=== PATIENT | male | born 1940 | race Caucasian/White ===

== ENCOUNTER 2020-04-19 22:43 | Emergency (ER) | payer MEDICARE, OTHER ==
--- NOTE | 2020-04-20 02:08 | CON ---
DATE OF CONSULTATION: 04/19/2020 SUBJECTIVE: Mr. Munson is 79-year-old gentleman, as a transfer from [place] to our ED due to a fall. He states he was at his grandson's birthday alliance party when he came out of the porch and stepped on a plastic pumpkin. He then tripped and fell hitting his head on a glass door. Luckily, the sliding glass door did not shatter break. He currently complains of neck pain. Denies loss of consciousness, weakness, loss of bowel or bladder dysfunction. A C-spine CT was done at [place] indicating an incomplete fracture of the base of the dens. There are cystic changes in the region that suggested chronic in nature versus acute in nature. There is no displacement noted on the CT image. He has free active range of motion in all extremities. No focal motor weakness. No reflex asymmetry. He denies bladder or bowel dysfunction. REVIEW OF SYSTEMS: CONSTITUTIONAL: Denies fever or chills. ENT: Denies change in vision or hearing. CARDIAC: Denies chest pain, shortness of breath, diaphoresis. PULMONARY: Denies shortness of breath, cough, hemoptysis. GASTROINTESTINAL: Denies abdominal pain, nausea, vomiting, diarrhea, change in stool formation and consistency. GENITOURINARY: Denies trouble with urination, frequency of urination, bloody urine. SKIN: Denies skin rash, bruising, bleeding, skin masses. MUSCULOSKELETAL: As per history of present illness. NEUROLOGICAL: As per history of present illness. PSYCHOLOGICAL: Denies anxiety, depression, behavior changes. PAST MEDICAL HISTORY: Hypertension, neuropathy, shingles. PAST SURGICAL HISTORY: Appendectomy, hernia, carpal tunnel repair, total knee replacement, total shoulder replacement, umbilical hernia. SOCIAL HISTORY: Alcohol, currently beer and wine 3 to 5 times per week. Denies cigarette use. Denies illicit drug use. FAMILY HISTORY: Mother diagnosed with cancer. MEDICATIONS: 1. Acetaminophen 500 mg. 2. Aspirin 325 mg. 3. Gabapentin 600 mg. 4. Hydrochlorothiazide 25 mg. 5. Metoprolol 50 mg. 6. Ocular lubricant, Systane. ALLERGIES: NO KNOWN DRUG ALLERGIES. PHYSICAL EXAMINATION: VITALS: BP 140/68, heart rate 82, temperature 38. Height 182 cm, weight 109 kg. HEENT: Pupils are equal. Extraocular movements are intact. NECK: Soft, supple. No masses are noted. Range of motion is intact. There is tenderness palpating the cervical spine. NEUROLOGIC: Awake, alert, and oriented x3. Memory, attention, fund of knowledge is normal. Cranial nerves are grossly intact. Upper extremities, he has 5/5 bilateral strength in his deltoids, biceps, triceps, wrist extension, finger extension, finger intrinsics. Sensation is equal bilaterally. Reflexes symmetric. Lower extremities; he has 5/5 bilateral strength in his iliopsoas, quadriceps, hamstrings, anterior tib, EHL, and gastrocnemius. There is no area of dermatomal sensory loss. The reflexes are symmetric. The toes are downgoing. IMAGING DATA: Cervical CT, incomplete fracture of the base of the dens associated with prominent cystic changes. There is no displacement. LABORATORY DATA: Sodium 137. Platelets 175. PT 12.7, INR 0.9, PTT 27.5. There is disk narrowing at C3-4, C5-6, and C6-7. At C2-3, there is a mild right-sided foraminal narrowing. At C3-4, there is mild canal stenosis with right greater than left foraminal narrowing. At C4-5, there is right foraminal narrowing. At C5-6 and C6-7, there is bilateral foraminal narrowing. ASSESSMENT: 1. Incomplete fracture of the base of the dens which is nondisplaced. 2. Cervical stenosis. PLAN: Hard collar 17/01. We will have him follow up in 2 to 3 weeks in our clinic and repeat scans prior to his visit. Reports past 2 years left hand numbness and paresthesias in all his fingers except his little finger. The greatest numbness and paresthesia is in his thumb and index finger. He denies weakness. Job ID: [id number]
== END 2020-04-20 01:25 | disposition home or self-care (01) ==
LOC: ERS 22:43
DX: S12.110A Anterior displaced Type II dens fracture, initial encounter for closed fracture (principal); I10 Essential (primary) hypertension; Z79.899 Other long term (current) drug therapy; W01.118A Fall on same level from slipping, tripping and stumbling with subsequent striking against other sharp object, initial encounter
CPT/HCPCS: 99283

== ENCOUNTER 2020-06-23 08:24 | Inpatient (IN) | payer MEDICARE, OTHER ==
--- NOTE | 2020-06-19 14:25 | HP ---
REASON FOR HISTORY AND PHYSICAL: Surgery on 06/23/2020, case #[id number]. HISTORY OF PRESENT ILLNESS: Mr. Munson is an 79-year-old gentleman who had a fall, tripping over a toy 2 months ago. The toy caused him to fall forward hitting a sliding glass door, which did not break. For the past 2 months, he has been using a C-collar 17/01 with followup x-rays. At his last visit, he was given the option to wear his collar for another 1 to 2 months versus a C1-C2 fusion and loss of rotation due to the delayed healing of the type 2 dens fracture. He is now more interested in surgery. REVIEW OF SYSTEMS: CONSTITUTIONAL: Denies fever or chills. EARS, NOSE, AND THROAT: Denies change of vision or hearing. CARDIAC: Denies chest pain, shortness of breath, or diaphoresis. PULMONARY: Denies shortness of breath, cough, or hemoptysis. GASTROINTESTINAL: Denies abdominal pain, nausea, vomiting, diarrhea, or change in stool formation and consistency. GENITOURINARY: Denies trouble with urination, frequency of urination, or bloody urine. SKIN: Denies skin rash, bruising, bleeding, or skin masses. MUSCULOSKELETAL: As per history of present illness. NEUROLOGIC: As per history of present illness. PSYCHOLOGIC: Denies anxiety, depression, or behavior changes. PAST MEDICAL HISTORY: Hypertension, shingles. PAST SURGICAL HISTORY: Appendectomy, umbilical hernia, carpal tunnel repair, total knee replacement, total shoulder replacement. SOCIAL HISTORY: Drinks 3 to 5 alcoholic beverages per week. Denies nicotine use. Denies illicit drug use. FAMILY HISTORY: Mother diagnosed with cancer. Father, unknown. MEDICATIONS: 1. Aspirin 325 mg. 2. Losartan 25 mg. 3. Metoprolol 50 mg. 4. Hydrochlorothiazide 12.5 mg. 5. Gabapentin 800 mg. 6. Cymbalta 30 mg. ALLERGIES: CODEINE AND OXCARBAZEPINE. PHYSICAL EXAMINATION: VITAL SIGNS: Height 182 cm, weight 109 kg. HEENT: Pupils are equal. Extraocular movements are intact. NECK: C-collar is in place. NEUROLOGIC: Awake, alert, and oriented x3. Memory, attention, and fund of knowledge are normal. Cranial nerves grossly intact. Gait and station are normal. Motor exam; normal strength in the deltoids, biceps, triceps, wrist extensor, finger extensor, and interossei. Sensory exam; there is no dermatomal sensory loss in C5, C6, C7, C8 or T1. IMAGING: CT of the C-spine, type 2 dens fracture. X-rays of the C-spine, anterior displacement stable. Visible fracture line on the lateral side. ASSESSMENT: Anterior displacement type 2 dens fracture with delayed healing. PLAN: 1. C1-C2 fusion due to unstable dens fracture. 2. Preop labs; CBC, PT, PTT, COVID-19 testing. 3. Cardiac and anesthesia clearance. 4. Stop aspirin one week before surgery. May resume in one week after surgery. INFORMED CONSENT: We discussed the indications, risks, benefits, alternatives, and expected results from surgery. The risks discussed included, but were not limited to, bleeding, infection, CSF leak, nerve damage, weakness, spinal cord injury, incontinence, paralysis, ventilator dependency, wheelchair dependency, loss of vision, hardware misplacement, cardiopulmonary complications of anesthesia, or . Long-term complications discussed included, but were not limited to, hardware failure and degeneration of surrounding disk. He understands the risks and is willing to proceed. Job ID: [id number] [facility]
[2020-06-23 09:06] LABS: #Eosinphils 0.1 thou/uL (0.0-0.7); #Lymphocytes 1.3 thou/uL (1.20-3.40); #Monocytes 0.6 thou/uL (0.11-0.59); #Neutrophils 2.6 thou/uL (1.40-6.50); %Basophils 0.8 % (0.0-1.0); %Eosinophils 3.1 % (0.0-10.0); %Lymphocytes 28.3 % (21.0-51.0); %Monocytes 11.9 % (0.0-10.0); %Neutrophils 55.9 % (42.0-75.0); Hemoglobin 14.4 g/dL (14.0-18.0); Mean Corpuscular HGB CONC 33.1 g/dL (32.0-36.0); Mean Corpuscular Hemoglobin 32.1 pg (27.0-31.0); Mean Corpuscular Volume 97.1 fL (78.0-98.0); Mean Platelet Volume 7.9 fL (7.4-10.4); Platelet Count 177 thou/uL (130-400); RBC Distribution Width 12.9 % (11.5-14.5); Red Blood Cell (RBC) Count 4.49 mill/uL (4.70-6.10); White Blood Cell (WBC) Count 4.6 thou/uL (4.8-10.8)
[2020-06-23 09:14] LABS: PTT 29.5 sec (22.9-36.1); Prothrombin Time 12.9 sec (12.0-14.7)
[2020-06-23] MEDS ORDERED: EPINEPHrine 1 MG/ML AMP ONE (09:59)
[2020-06-23] MEDS ORDERED: Bacitracin Zinc Ointment 30 gm TUBE ONE (09:59)
[2020-06-23] MEDS ORDERED: Bupivacaine PF 0.5% 30 ML VIAL ONE (09:59)
[2020-06-23] MEDS ORDERED: Thrombin 5000 UNITS/5 ML VIAL ONE (09:59)
[2020-06-23] MEDS ORDERED: ePHEDrine 50 MG/ML VIAL ONE (10:06)
[2020-06-23] MEDS ORDERED: PHENYLEPHRINE-NS 100 MCG/ML 10 ML SYRINGE ONE (10:06)
[2020-06-23] MEDS ORDERED: PROPOFOL 200 MG/20 ML VIAL ONE (10:06)
[2020-06-23] MEDS ORDERED: Labetalol HCl 100 MG/20 ML VIAL ONE ×2 (10:06→16:23)
[2020-06-23] MEDS ORDERED: Rocuronium Bromide 10 MG/ML (10ML VIAL) ONE (10:06)
[2020-06-23] MEDS ORDERED: Ondansetron PF 4 MG/2 ML Vial ONE (10:06)
[2020-06-23] MEDS ORDERED: Vecuronium 10 MG VIAL ONE (10:06)
[2020-06-23] MEDS ORDERED: Dexamethasone 20 MG/5 ML VIAL ONE (10:06)
[2020-06-23] MEDS ORDERED: Lidocaine 1% PF 5 ML VIAL ONE (10:06)
[2020-06-23] MEDS ORDERED: Fentanyl 100 MCG/2 ML VIAL ONE ×5 (11:00→18:14)
[2020-06-23] MEDS ORDERED: SUGAMMADEX SODIUM 200 MG/2 ML VIAL ONE (15:39)
[2020-06-23] MEDS ORDERED: Milk Of Magnesia 30 ML UDCUP PO PRN (16:00)
[2020-06-23] MEDS ORDERED: Scopolamine 1.5 mg/72 hour Patch TD PRN (16:00)
[2020-06-23] MEDS ORDERED: tiZANidine HCl 4 MG TAB PO PRN (16:00)
[2020-06-23] MEDS ORDERED: Tamsulosin HCl 0.4 MG CAP PO PRN (16:00)
[2020-06-23] MEDS ORDERED: Promethazine HCl 25 MG/ML VIAL IM PRN ×3 (16:00→16:31)
[2020-06-23] MEDS ORDERED: Mag-Al 1200 mg/1200 mg/30 ML UDCUP PO PRN (16:00)
[2020-06-23] MEDS ORDERED: Ondansetron HCl/PF 4 MG/2 ML Vial IVP PRN ×2 (16:04→16:31)
[2020-06-23] MEDS ORDERED: Promethazine HCl 25 MG/ML VIAL SLOW IVP PRN ×2 (16:04→16:31)
[2020-06-23] MEDS ORDERED: Fentanyl 100 MCG/2 ML VIAL SLOW IVP PRN (16:07)
[2020-06-23] MEDS ORDERED: hydrALAZINE 20 MG/ML VIAL SLOW IVP PRN ×2 (16:09→16:38)
[2020-06-23] MEDS ORDERED: Labetalol HCl 100 MG/20 ML VIAL SLOW IVP PRN ×2 (16:10→16:36)
[2020-06-23] MEDS ORDERED: HYDROmorphone 2 MG/ML VIAL SLOW IVP PRN (16:31)
[2020-06-23] MEDS ORDERED: hydrALAZINE 20 MG/ML VIAL SLOW IVP SCH (16:45)
[2020-06-23] MEDS ORDERED: Dexmedetomidine 200 MCG/2 ML VIAL ONE (16:50)
--- NOTE | 2020-06-23 16:57 | OP ---
DATE OF PROCEDURE: 06/23/2020 NEON TECHNICIAN: Valdemar Montes PA-C PREOPERATIVE INDICATION: Prevent neurological deterioration. PREOPERATIVE DIAGNOSIS: Unstable nonhealing type 2 odontoid fracture. POSTOPERATIVE DIAGNOSIS: Unstable nonhealing type 2 odontoid fracture. PROCEDURE PERFORMED: 1. Attempted C1-C2 instrumented fusion, aborted. 2. Occiput to C3 fusion. 3. Occipital and posterolateral instrumentation, segmental. 4. Local morselized autograft. 5. Morselized allograft. PREOPERATIVE MEDICATIONS: Ancef 2 g IV. DRAIN NUMBER: Zero. DRAIN TYPE: None. DESCRIPTION OF PROCEDURE: The patient was brought to the operating room. General endotracheal anesthesia was induced. The patient was carefully positioned on the operating table with his head immobilized in a Alaniz milagro quality head. A lateral fluoro radiograph was used to plan our incision. Hair was removed from the back of the scalp with electric clippers. We marked out a midline incision. The back of the neck was sterilely prepped and draped. We infused local anesthetic under a planned incision. We opened with a 10 blade knife and controlled bleeding with bipolar and monopolar cautery. We used monopolar cautery to dissect to the periosteal layer of the skull. We dissected through the ligamentum nuchae to the arch of C1 and C2. We dissected down the arch of C1, down the lamina of C2 and exposed the lateral masses of each. A self-retaining retractor was placed. We irrigated with bacitracin irrigation. We then began to choose our trajectory for the C1 screws. On the left side in order to preserve the C2 nerve root, we drilled out a tiny fragment of the C1 arch. The arch was markedly thin and there was a tiny pinhole seen with arterial blood coming from the drilled away bone. This was undoubtedly the edge of the vertebral artery. The bleeding was easily controlled with a small pledget of Gelfoam and pressure held, but each time we removed pressure, there was more bleeding. We used Floseal over the pinhole and hemostasis was excellent with the addition of thrombin-soaked Gelfoam. After a minute, there was hemostasis. Due to the breach of the arterial wall on the left side, we chose not to approach the right side of C1 and leave the C1 vertebral artery intact. Therefore, we changed our surgical plan. The new plan was occipital cervical fusion. We carried our dissection inferiorly. We identified the C3 spinous process and lamina. We dissected out until we were quite sure of the facet joints at C2-C3 and C3-C4 to gain our boundaries of the lateral mass there. We drilled out the entry points for lateral mass screws and placed those by angling superior and laterally. Before placement of the screws, we probed our trajectory and found it completely encased in bone. At C2, we placed pars screws. These were radiographically guided. We angled superiorly and medially over the transverse foramen towards the C2 vertebral body. An 18 mm screws were placed in the pars interarticularis of C2 bilaterally. We then placed an occipital plate. We drilled helicopter pilot instructor holes in the midline along the occipital keel. We used a threaded blunt tap to tap our holes and then attached the plate with appropriate screws for the occipital plate. We drilled out laterally as well and with 4 screws attached occipital plate. We then brought bent rods into the field. We used a della template to measure our distance and angle and then we contoured a della to fit our screw heads at C2-C3 and the occipital plate. We cut it to the appropriate length, brought into the field and tightened caps over the rods in his torque/counter- torque mechanism to ensure adequate tightness. Once the occiput and C2 and C3 vertebral body were fixed, we irrigated copiously with bacitracin irrigation. We brought a cutting bit into the field and drilled away the cortical surface of the bone on the occiput on the arch of C1, the lamina of C2, and the lamina of C3. Over the decorticated bone, we left demineralized bone matrix and morselized autograft. The autograft was obtained from bone removed during our exposure. These osteophytes were morselized and added to our demineralized bone matrix to form our fusion substrate. The decortication of the bone and the bone graft placement were all done after copious irrigation with bacitracin irrigation. We treated the wound with vancomycin powder. We closed in anatomical layers and we applied a sterile dressing. The patient was carefully taken back out of the [place] immobilizer and transferred to the transport cart. This was a clean case, no contamination. Job ID: [id number] [facility]
[2020-06-23] MEDS ORDERED: CEFAZOLIN 2 GM in Premix Bag 1 BAG IVPB SCH (17:00)
[2020-06-23] MEDS ORDERED: hydrALAZINE 20 MG/ML VIAL ONE (18:14)
[2020-06-23] MEDS ORDERED: Promethazine HCl 25 MG/ML VIAL ONE (20:07)
[2020-06-23] MEDS ORDERED: HYDROmorphone 0.5 MG/0.5 ML SYRINGE ONE (20:07)
[2020-06-23] MEDS: Gabapentin 400 MG CAP PO SCH (23:27)
[2020-06-23] MEDS: Sodium Chloride 0.9% 1,000 ML IV SCH (23:27)
[2020-06-23] MEDS: DULoxetine 30 MG CAP PO SCH (23:27)
[2020-06-23] MEDS: CEFAZOLIN 2 GM in Premix Bag 1 BAG IVPB SCH (23:28)
[2020-06-24] MEDS: Labetalol HCl 100 MG/20 ML VIAL SLOW IVP PRN ×2 (01:33→22:38)
[2020-06-24] MEDS: Promethazine 25 MG TAB PO PRN ×2 (01:50→12:54)
[2020-06-24] MEDS: diphenhydrAMINE 25 MG CAP PO PRN ×2 (02:05→20:23)
[2020-06-24] MEDS: Fentanyl 100 MCG/2 ML VIAL SLOW IVP PRN ×3 (02:06→22:49)
[2020-06-24 02:29] VITALS: BMI 35.1
[2020-06-24] MEDS: Sodium Chloride 0.9% 1,000 ML IV SCH ×2 (04:48→19:26)
[2020-06-24] MEDS: Acetaminophen 325 MG TAB PO PRN (04:48)
--- NOTE | 2020-06-24 07:39 | PRG ---
DATE OF SERVICE: 06/24/2020 I saw Mr. Munson in the Intermediate Care Unit this morning. He had an uneventful night. He is thankful to have the surgery behind him. No events have been recorded. Among the electronically recorded vital signs, I do not see any fevers. Blood pressures have been between the 110s and 130s. I do not find any new neurological deficit. Mr. Munson is stable for transfer out of the Intermediate Care Unit to General Floor care. He can begin mobilization. When his head of bed is up over 45 degrees, he needs the collar on. The collar should be on for sitting and standing and begin mobilization today. When he is independent for activities of daily living, he can be discharged, that can be as soon as this afternoon. If he needs help with physical therapy, then inpatient rehabilitation might be an option. I suspect he will be safe for discharge. He can resume an aspirin 1 week after surgery. Job ID: [id number]
--- NOTE | 2020-06-24 08:37 | CON ---
DATE OF CONSULTATION: PRIMARY CARE PHYSICIAN: Out of town, [place], [place]. CHIEF COMPLAINT: Neck pain. HISTORY OF PRESENT ILLNESS: The patient is an 79-year-old male with a past medical history significant for postherpetic neuralgia and hypertension, who presents to the hospital for a scheduled C1 through C2 fusion with Dr. Gonsalves, Neurosurgery. Apparently, the patient suffered mechanical fall approximately 2 months ago. He tripped over a toy, causing him to fall forward and hitting his head into a sliding glass door, which did not break. For the past several months, he has been wearing a C-collar 24 hours a day and had followup x-rays. At one time, he was given the option to continue wearing the C-collar for the next couple of months or having a fusion of his neck. The patient opted for the surgical intervention. He underwent C1-C2 fusion on 06/23/2020. We have been consulted for medical management of his chronic conditions. PAST MEDICAL HISTORY: 1. Hypertension. 2. Postherpetic neuralgia. 3. Mechanical fall. SURGICAL HISTORY: 1. Appendectomy. 2. Umbilical hernia repair. 3. Carpal tunnel repair. 4. Total knee replacement. 5. Total shoulder replacement. 6. C1 through C2 fusion. SOCIAL HISTORY: The patient lives with his family. Ambulates with a roller walker. Denies any history of nicotine use or illicit drug use. He drinks alcohol socially, drinking approximately 3 to 5 alcoholic beverages per week. FAMILY HISTORY: Contributory for cancer in his mother and father is unknown. ALLERGIES: 1. CODEINE. 2. OXCARBAZEPINE. HOME MEDICATIONS: 1. Aspirin 325 mg p.o. daily. 2. Losartan 25 mg p.o. daily. 3. Metoprolol 50 mg p.o. daily. 4. Hydrochlorothiazide 12.5 mg p.o. daily. 5. Gabapentin 800 mg p.o. t.i.d. 6. Cymbalta 30 mg p.o. daily. REVIEW OF SYSTEMS: CONSTITUTIONAL: The patient denies fever or chills. EYES: Denies changes in vision or eye drainage. ENT: Denies tinnitus, vertigo, dysphagia or odynophagia. RESPIRATORY/CHEST: Denies shortness of breath, cough, wheezing, or hemoptysis. CARDIOVASCULAR: Denies chest pain, heart palpitations, or lightheadedness. ABDOMEN: Denies abdominal pain, nausea, vomiting, diarrhea, hematochezia, or melena. Denies constipation. URINARY: Denies dysuria or hematuria. NEUROLOGIC: Denies weakness to his upper extremities, headache, difficulty swallowing, or slurred speech. PHYSICAL EXAMINATION: VITAL SIGNS: Blood pressure 119/55, pulse is 74, respirations 14, 97% on room air, temperature 98.4. HEAD: Atraumatic and normocephalic. EYES: PERRLA. Extraocular muscles are intact. Sclerae are nonicteric. ENT: Oropharynx is clear. Uvula midline. Moist mucous membranes. No oral lesions. NECK: Mildly tender posteriorly. Surgical site is clean, dry, and intact. RESPIRATORY/CHEST: Respirations are even and nonlabored. Clear to auscultation. No rhonchi, wheezes, or rales. CARDIOVASCULAR: S1 and S2 appreciated. No murmurs, rubs, or gallops. ABDOMEN: Soft, nontender, mildly distended. Active bowel sounds. No guarding. No rigidity. No rebound. BACK: No central spinous tenderness. No CVA tenderness. EXTREMITIES: Upper extremities; full range of motion, normal strength, sensation intact, palpable radial pulses. Lower extremities; full range of motion, normal strength, sensation intact, palpable pedal pulses. No swelling. NEUROLOGIC: Cranial nerves 2 through 12 are intact. No focal motor deficit. LABORATORY DATA AND DIAGNOSTICS: WBCs 4.6, hemoglobin 14.4, hematocrit 43.6, platelets 177. Coags; PT is 12.9, INR is 1.0, APTT is 29.5. IMPRESSION: 1. Hypertension. 2. Postherpetic neuralgia. 3. C1 through C2 fusion. PLAN: The patient is an 79-year-old male, postop day 1, C1 through C2 fusion with complication of the vertebral artery. Strict blood pressure control, SBP less than 140 per neurosurgery. Neurosurgery has ordered hydralazine and labetalol p.r.n. for strict blood pressure control. Blood pressure appears to be well controlled. We will continue to hold home medications of metoprolol, losartan, hydrochlorothiazide, and aspirin for Neurosurgery. Agree with continuing gabapentin, Duloxetine, home medications for postherpetic neuralgia. SCDs for DVT prophylaxis. No GI prophylaxis. Code status is full code. The patient's , Angie, is the medical power of county attorney and her number is [phone]. Discussed this case with attending physician, Dr. Khoury. Job ID: [id number] [facility]
[2020-06-24] MEDS: traMADol HCl 50 MG TAB PO PRN ×3 (09:30→22:49)
[2020-06-24] MEDS: CEFAZOLIN 2 GM in Premix Bag 1 BAG IVPB SCH (09:32)
[2020-06-24] MEDS: Gabapentin 400 MG CAP PO SCH ×3 (09:33→19:33)
[2020-06-24] MEDS: DULoxetine 30 MG CAP PO SCH ×2 (19:33→22:46)
[2020-06-24] MEDS: Ondansetron PF 4 MG/2 ML Vial IVP PRN (20:23)
[2020-06-24] MEDS: hydrALAZINE 20 MG/ML VIAL SLOW IVP PRN (23:51)
[2020-06-25] MEDS ORDERED: Melatonin 3 MG TAB PO PRN (01:16)
[2020-06-25] MEDS: Promethazine 25 MG TAB PO PRN (01:37)
[2020-06-25] MEDS: Acetaminophen 325 MG TAB PO PRN (01:37)
[2020-06-25] MEDS: Labetalol HCl 100 MG/20 ML VIAL SLOW IVP PRN ×2 (01:38→15:24)
[2020-06-25] MEDS: Fentanyl 100 MCG/2 ML VIAL SLOW IVP PRN ×3 (01:38→12:31)
[2020-06-25 04:44] LABS: Anion Gap 11 mmol/L (10-20); BUN (Urea Nitrogen) 15 mg/dL (8.4-25.7); Calc. Creatinine Clearance 127 mL/min (70-130); Calcium 8.8 mg/dL (7.8-10.44); Carbon Dioxide 30 mmol/L (23-31); Chloride 96 mmol/L (98-107); Glucose 127 mg/dL (83-110); Sodium 133 mmol/L (136-145)
--- NOTE | 2020-06-25 07:17 | PRG ---
DATE OF SERVICE: Mr. Munson is 2 days out from a stabilization of an unstable dens fracture. This required occiput to C3 fusion. Mr. Munson has done remarkably well. He worked with Physical and Occupational Therapy yesterday and then could improve even more with additional assistance. He is interested in inpatient rehabilitation. I do not see any fevers recorded in last 24 hours. Blood pressures have been in the 120s to 140s. There are no deficits on neurological examination. Mr. Munson is ready for either discharge home or transfer to rehab. If he is a candidate for inpatient rehabilitation, it will help him immensely. We can make those arrangements happen today. Job ID: [id number] [facility]
--- NOTE | 2020-06-25 07:44 | PDOC.HOSPP ---
- Subjective Encounter Date: 06/25/20 Encounter Time: 08:15 Subjective: Patient seen and examined. No new complaints. No overnight events. Patient feels well. He is up at bedside recliner. He prefers to go to inpatient rehab. We discussed that case management is working on that today. Endorses mild discomfort posterior neck, stable. Compliant with c-collar precautions. Denies any focal motor weakness, headache, nausea, vomiting, fever/chills. - Objective Vital Signs & Weight: Vital Signs (12 hours) Temp Pulse BP Pulse Ox 06/25/20 07:23 97.8 F 06/25/20 01:38 73 149/78 H 06/25/20 00:07 99.1 F 06/24/20 23:51 73 149/78 H 06/24/20 22:38 73 144/68 H 06/24/20 20:14 97.7 F 06/24/20 20:00 98 Weight Weight 259 lb Most Recent Monitor Data Heart Rate from ECG 65 NIBP 144/74 NIBP BP-Mean 97 Respiration from ECG 16 SpO2 96 I&O: 06/24/20 06/25/20 06/26/20 06:59 06:59 06:59 Intake Total 800 2835 Output Total 500 1500 Balance 300 1335 Result Diagrams: 06/23/20 08:54 06/25/20 04:03 Hospitalist ROS - Review of Systems Constitutional: denies: fever, chills Eyes: denies: vision change ENT: denies: throat pain, throat swelling Respiratory: denies: cough, shortness of breath, hemoptysis Cardiovascular: denies: chest pain, palpitations, edema Gastrointestinal: denies: nausea, vomiting, abdominal pain Musculoskeletal: reports: neck pain (mild, stable since surgery) Neurological: denies: weakness, numbness, change in speech All other systems reviewed; all pertinent +/- noted in HPI/Subj - Medication Medications: Active Medications Generic Name Dose Route Start Last Admin Trade Name Freq PRN Reason Stop Dose Admin Acetaminophen 650 mg 06/23/20 16:00 06/25/20 01:37 Acetaminophen 325 Mg Tab PO 650 mg Q4H PRN Administration CARIAS/Fever Or Mild Pain (1-3) Diphenhydramine HCl 25 mg 06/23/20 16:00 06/24/20 20:23 Diphenhydramine 25 Mg Cap PO 25 mg Q6H PRN Administration Itching Duloxetine HCl 30 mg 06/23/20 21:00 06/24/20 22:46 Duloxetine 30 Mg Cap PO Not Given HS ZAIRA Fentanyl 50 mcg 06/23/20 16:08 06/25/20 01:38 Fentanyl 100 Mcg/2 Ml Vial SLOW IVP 50 mcg Q1H PRN Administration Severe Pain (7-10) Gabapentin 800 mg 06/23/20 21:00 06/24/20 19:33 Gabapentin 400 Mg Cap PO Not Given TID ZAIRA Hydralazine HCl 10 mg 06/23/20 18:04 06/24/20 23:51 Hydralazine 20 Mg/Ml Vial SLOW IVP 10 mg Q15MIN PRN Administration SBP > 130 Sodium Chloride 1,000 mls @ 75 mls/hr 06/23/20 16:00 06/24/20 19:26 Normal Saline 0.9% IV Not Given .[id number] [facility] Labetalol HCl 10 mg 06/23/20 18:04 06/25/20 01:38 Labetalol Hcl 100 Mg/20 Ml Vial SLOW IVP 10 mg Q10MIN PRN Administration Sbp Greater Than 130 Melatonin 3 mg 06/25/20 01:16 06/25/20 01:37 Melatonin 3 Mg Tab PO 3 mg HS PRN Administration Insomnia Ondansetron HCl 4 mg 06/24/20 20:08 06/24/20 20:23 Ondansetron Pf 4 Mg/2 Ml Vial IVP 4 mg Q6H PRN Administration Nausea/Vomiting Promethazine HCl 12.5 mg 06/23/20 16:00 06/25/20 01:37 Promethazine 25 Mg Tab PO 12.5 mg Q4H PRN Administration Nausea/Vomiting Tramadol HCl 50 mg 06/23/20 16:00 06/24/20 22:49 Tramadol Hcl 50 Mg Tab PO 50 mg Q6H PRN Administration Mild Pain (1-3) - Exam General Appearance: NAD, awake alert. negative: ill appearing Eye: PERRL, anicteric sclera ENT: normocephalic atraumatic Neck - other findings: wearing c collar Heart: RRR, no murmur, no gallops, no rubs, normal peripheral pulses Respiratory: CTAB, no wheezes, no rales, no ronchi, normal chest expansion Extremities: no edema Neurological: cranial nerve grossly intact, no focal deficits Musculoskeletal: normal tone, normal strength Psychiatric: normal affect, A&O x 3 Hosp A/P (1) HTN (hypertension) Code(s): I10 - ESSENTIAL (PRIMARY) HYPERTENSION Status: Chronic (2) Post herpetic neuralgia Code(s): B02.29 - OTHER POSTHERPETIC NERVOUS SYSTEM INVOLVEMENT Status: Chroni c (3) Cervical vertebral fusion Code(s): M43.22 - FUSION OF SPINE, CERVICAL REGION Status: Acute - Plan Good BP control. Continue home medications. Patient desires inpatient rehabilitation prior to going home. CM to work on disposition. Discussed case with attending physician, Dr. Mcneal.
[2020-06-25] MEDS: hydrALAZINE 20 MG/ML VIAL SLOW IVP PRN (08:21)
[2020-06-25] MEDS: traMADol HCl 50 MG TAB PO PRN ×2 (08:22→17:54)
[2020-06-25] MEDS: Sodium Chloride 0.9% 1,000 ML IV SCH (08:26)
[2020-06-25] MEDS: Gabapentin 400 MG CAP PO SCH ×2 (08:27→14:44)
[2020-06-25] MEDS: Ondansetron PF 4 MG/2 ML Vial IVP PRN (13:51)
[2020-06-25 15:17] VITALS: TEMP 97.6
[2020-06-25 15:28] VITALS: BP 160/75
--- NOTE | 2020-06-26 15:09 | DIS ---
DATE OF ADMISSION: 06/23/2020 DATE OF DISCHARGE: 06/25/2020 HISTORY OF PRESENT ILLNESS: Mr. Munson is 79-year-old gentleman with a delayed healing of a type 2 dens fracture after 2 months. He underwent a posterior fusion occipital to C3. Following the surgery, he was transitioned to the [facility] floor where his pain has been well controlled with p.o. medications. He is tolerating a regular diet and is voiding appropriately. He is otherwise doing well and ambulating easily in the hallways. He is awaiting inpatient rehab on approval by insurance. PHYSICAL EXAMINATION: On exam today, he is awake and alert, in no acute distress. He has free active range of motion of all his extremities. No focal motor weakness. No reflex asymmetry. His incision is clean, dry, and intact. PLAN: We will plan to discharge the patient to inpatient rehab once insurance has been approved. I have discussed home care precautions with him. CONDITION ON DISCHARGE: The patient had no emergencies. Condition was stable for discharge. MEDICATIONS: Home going medications were reviewed. Followup arrangements made by our prize coordinator in the clinic and call to the patient. ACTIVITIES: Restrictions were reviewed in person. Wound care showers are acceptable. The patient should pat the incision dry, but not submerge under the surface of the body of water for 1 month. Job ID: [id number]
== END 2020-06-25 19:20 | DRG 472 ==
LOC: SURG A 08:24 → IMCU/EMU 06-24 00:54 → SJJU 06-24 12:32 → IMCU/EMU 06-24 12:34
PROVIDERS: ADMIT Neurological Surgery; ATTEND Neurological Surgery
PROC: 0RG2071 Fusion of 2 or more Cervical Vertebral Joints with Autologous Tissue Substitute, Posterior Approach, Posterior Column, Open Approach (ICD-10-PCS; principal; 2020-06-23)
DX: S12.110G Anterior displaced Type II dens fracture, subsequent encounter for fracture with delayed healing (principal); B02.29 Other postherpetic nervous system involvement; W01.0XXD Fall on same level from slipping, tripping and stumbling without subsequent striking against object, subsequent encounter; Z96.659 Presence of unspecified artificial knee joint; Z96.619 Presence of unspecified artificial shoulder joint; I10 Essential (primary) hypertension; Z88.6 Allergy status to analgesic agent; Z88.8 Allergy status to other drugs, medicaments and biological substances; Z90.49 Acquired absence of other specified parts of digestive tract; Z98.890 Other specified postprocedural states; Z79.82 Long term (current) use of aspirin; Z79.899 Other long term (current) drug therapy
CPT/HCPCS: 36415; 76000; 80048; 85025; 85610; 85730; C1713; C1768; J0171; J0360; J0690; J1100; J1170; J2405; J2550; J2704; J3010; J3370; J3490; L8699; Q0163; Q0169; S0020

== ENCOUNTER 2020-11-21 08:52 | Outpatient (CLI) | payer MEDICARE, OTHER ==
[2020-11-21 09:21] LABS: Estimated GFR-MDRD - POC Greater than 90
== END 2020-11-21 08:53 | disposition home or self-care (01) ==
LOC: BICCT 08:52
PROVIDERS: ATTEND Neurological Surgery
DX: S12.110G Anterior displaced Type II dens fracture, subsequent encounter for fracture with delayed healing (principal); I70.8 Atherosclerosis of other arteries; I67.2 Cerebral atherosclerosis; M47.812 Spondylosis without myelopathy or radiculopathy, cervical region; Z98.890 Other specified postprocedural states
CPT/HCPCS: 70498; 72040; 82565

== ENCOUNTER 2020-12-15 06:37 | Day surgery (SDC) | payer MEDICARE, OTHER ==
[2020-12-12 09:09] VITALS: BMI 32.5
[2020-12-15] MEDS ORDERED: Lidocaine 1% (PF) 30 ML VIAL ONE (06:45)
[2020-12-15] MEDS ORDERED: Iopamidol 370 76% 50 ML VIAL FS ONE (09:59)
== END 2020-12-15 09:27 | disposition home or self-care (01) ==
LOC: SDC 06:37
PROVIDERS: ATTEND Thoracic Surgery (Cardiothoracic Vascular Surgery)
PROC: 06H03DZ Insertion of Intraluminal Device into Inferior Vena Cava, Percutaneous Approach (ICD-10-PCS; principal; 2020-12-15)
DX: I26.99 Other pulmonary embolism without acute cor pulmonale (principal); I10 Essential (primary) hypertension; I48.0 Paroxysmal atrial fibrillation; Z87.891 Personal history of nicotine dependence; Z79.01 Long term (current) use of anticoagulants; Z79.899 Other long term (current) drug therapy; Z88.5 Allergy status to narcotic agent; Z88.8 Allergy status to other drugs, medicaments and biological substances
CPT/HCPCS: 37191; 75825; 76942; C1880; J2001; Q9967

== ENCOUNTER 2020-12-22 05:50 | Inpatient (IN) | payer MEDICARE, OTHER ==
[2020-12-22] MEDS ORDERED: Bupivacaine PF 0.5% 30 ML VIAL ONE ×2 (06:11→11:20)
[2020-12-22] MEDS ORDERED: Thrombin 5000 UNITS/5 ML VIAL ONE (06:11)
[2020-12-22] MEDS ORDERED: EPINEPHrine 1 MG/ML AMP ONE ×2 (06:11→11:20)
[2020-12-22] MEDS ORDERED: Neomycin-Polymyxin 1 ML AMP ONE (06:11)
[2020-12-22] MEDS ORDERED: Bacitracin Zinc Ointment 30 gm TUBE ONE (06:30)
[2020-12-22] MEDS ORDERED: Phenylephrine 10 MG/ML VIAL ONE (06:44)
[2020-12-22] MEDS ORDERED: Famotidine/PF 20 mg/2ml Vial ONE (06:58)
[2020-12-22] MEDS ORDERED: Fentanyl 100 MCG/2 ML VIAL ONE ×2 (07:12→13:16)
[2020-12-22] MEDS ORDERED: PHENYLEPHRINE-NS 100 MCG/ML 10 ML SYRINGE ONE ×2 (07:21→09:16)
[2020-12-22] MEDS ORDERED: PROPOFOL 200 MG/20 ML VIAL ONE (07:21)
[2020-12-22] MEDS ORDERED: Lidocaine 1% PF 5 ML VIAL ONE (07:21)
[2020-12-22] MEDS ORDERED: Rocuronium Bromide 10 MG/ML (10ML VIAL) ONE (07:21)
[2020-12-22] MEDS ORDERED: Ondansetron PF 4 MG/2 ML Vial ONE (07:21)
[2020-12-22] MEDS ORDERED: Dexamethasone 20 MG/5 ML VIAL ONE (07:21)
[2020-12-22] MEDS ORDERED: PACU-Morphine 4MG/ML VIAL SLOW IVP PRN (09:32)
[2020-12-22] MEDS ORDERED: Promethazine HCl 25 MG/ML VIAL IM PRN ×2 (09:32→14:00)
[2020-12-22] MEDS ORDERED: Meperidine HCl/PF 25 MG/ML VIAL SLOW IVP PRN (09:32)
[2020-12-22] MEDS ORDERED: Promethazine HCl 25 MG/ML VIAL IVPB PRN (09:32)
[2020-12-22] MEDS ORDERED: HYDROmorphone 2 MG/ML VIAL ONE (10:19)
[2020-12-22] MEDS ORDERED: Rocuronium Bromide 50 MG/5 ML VIAL ONE (11:16)
[2020-12-22] MEDS ORDERED: tiZANidine HCl 4 MG TAB PO PRN (14:00)
[2020-12-22] MEDS ORDERED: Ondansetron PF 4 MG/2 ML Vial IVP PRN (14:00)
[2020-12-22] MEDS ORDERED: Milk Of Magnesia 30 ML UDCUP PO PRN (14:00)
[2020-12-22] MEDS ORDERED: Fleet Enema 133 ML BOT PR PRN (14:00)
[2020-12-22] MEDS ORDERED: Bisacodyl 10 MG SUPP PR PRN (14:00)
[2020-12-22] MEDS ORDERED: Promethazine 25 MG TAB PO PRN (14:00)
[2020-12-22] MEDS ORDERED: HYDROcodone/Acetaminophen 10/325 mg Tablet PO PRN ×2 (14:00)
[2020-12-22] MEDS ORDERED: diphenhydrAMINE 50 MG/ML VIAL IVP PRN (14:00)
[2020-12-22] MEDS ORDERED: diphenhydrAMINE 25 MG CAP PO PRN (14:00)
[2020-12-22] MEDS ORDERED: Promethazine HCl 12.5 MG SUPP PR PRN (14:00)
[2020-12-22] MEDS ORDERED: Morphine 4 MG/ML VIAL SLOW IVP PRN (14:00)
[2020-12-22] MEDS ORDERED: Morphine 2 MG/ML VIAL SLOW IVP PRN (14:00)
[2020-12-22] MEDS ORDERED: SUGAMMADEX SODIUM 200 MG/2 ML VIAL ONE (14:07)
[2020-12-22] MEDS ORDERED: Scopolamine 1.5 mg/72 hour Patch TD SCH (16:00)
[2020-12-22] MEDS ORDERED: CEFAZOLIN 2 GM in Premix Bag 1 BAG IVPB SCH (16:00)
[2020-12-22 20:04] VITALS: BMI 33.7
[2020-12-22] MEDS: Sodium Chloride 0.9% 1,000 ML IV SCH (22:32)
[2020-12-22] MEDS ORDERED: LIDOCAINE TOP PRN (23:36)
[2020-12-23] MEDS: CEFAZOLIN 2 GM in Premix Bag 1 BAG IVPB SCH ×2 (05:43→16:26)
[2020-12-23] MEDS: Sodium Chloride 0.9% 1,000 ML IV SCH ×2 (05:44→17:44)
[2020-12-23] MEDS ORDERED: Tamsulosin HCl 0.4 MG CAP PO SCH (06:00)
[2020-12-23] MEDS ORDERED: Polyethylene Glycol OPTH DROP 15 ML BOT EA EYE PRN (13:43)
[2020-12-23] MEDS ORDERED: Pregabalin 25 MG CAP PO SCH (13:45)
[2020-12-23] MEDS ORDERED: hydrOXYzine 25 MG TAB PO SCH (15:00)
[2020-12-23] MEDS ORDERED: CEFAZOLIN 2 GM in Premix Bag 1 BAG IVPB SCH (15:30)
[2020-12-23 19:26] VITALS: BP 146/64; TEMP 98.2
[2020-12-23] MEDS ORDERED: GenTeal Tears Severe Dry Eye GEL 10 G EA EYE SCH (21:00)
[2020-12-23] MEDS ORDERED: DULoxetine 30 MG CAP PO SCH (21:00)
[2020-12-23] MEDS ORDERED: Famotidine 20 MG TAB PO SCH (21:00)
[2020-12-23] MEDS ORDERED: Pregabalin 75 MG CAP PO SCH (21:00)
== END 2020-12-23 19:28 | DRG 472 ==
LOC: SDC 05:50 → T4-B 15:42
PROVIDERS: ADMIT Neurological Surgery; ATTEND Neurological Surgery
PROC: 0RG1071 Fusion of Cervical Vertebral Joint with Autologous Tissue Substitute, Posterior Approach, Posterior Column, Open Approach (ICD-10-PCS; principal; 2020-12-22)
PROC: 01N10ZZ Release Cervical Nerve, Open Approach (ICD-10-PCS; 2020-12-22)
PROC: 0RP104Z Removal of Internal Fixation Device from Cervical Vertebral Joint, Open Approach (ICD-10-PCS; 2020-12-22)
DX: T84.418A Breakdown (mechanical) of other internal orthopedic devices, implants and grafts, initial encounter (principal); S12.110K Anterior displaced Type II dens fracture, subsequent encounter for fracture with nonunion; I10 Essential (primary) hypertension; Z20.822 Contact with and (suspected) exposure to COVID-19; Z96.651 Presence of right artificial knee joint; E66.9 Obesity, unspecified; K59.00 Constipation, unspecified; G50.0 Trigeminal neuralgia; I48.0 Paroxysmal atrial fibrillation; F41.9 Anxiety disorder, unspecified; Z90.49 Acquired absence of other specified parts of digestive tract; Z98.890 Other specified postprocedural states; Z79.01 Long term (current) use of anticoagulants; Z79.899 Other long term (current) drug therapy; Z88.5 Allergy status to narcotic agent; Z68.33 Body mass index [BMI] 33.0-33.9, adult; Z86.711 Personal history of pulmonary embolism; Z87.891 Personal history of nicotine dependence
CPT/HCPCS: 76000; C1713; J0171; J0690; J1100; J1170; J1642; J2370; J2405; J2704; J3010; J3370; Q0163; S0020; S0028

== ENCOUNTER 2021-04-02 07:46 | Outpatient (CLI) | payer MEDICARE, OTHER ==
[2021-04-02 10:06] LABS: Hemoglobin 14.3 g/dL (13.5-17.5); Mean Corpuscular HGB CONC 31.8 g/dL (32.0-36.0); Mean Corpuscular Hemoglobin 30.1 pg (27.0-33.0); Mean Corpuscular Volume 94.5 fl (81.2-95.1); Mean Platelet Volume 11.2 fl (7.4-10.4); Platelet Count 177 10x3/uL (150-450); RBC Distribution Width 15.9 % (11.5-14.5); Red Blood Cell (RBC) Count 4.75 10x6/uL (4.32-5.72); White Blood Cell (WBC) Count 4.5 10x3/uL (3.5-10.5)
[2021-04-02 10:15] LABS: Anion Gap 12 mmol/L (10-20); BUN (Urea Nitrogen) 15 mg/dL (8.4-25.7); Calc. Creatinine Clearance 0 mL/min (70-130); Calcium 10.2 mg/dL (7.8-10.44); Carbon Dioxide 30 mmol/L (23-31); Chloride 101 mmol/L (98-107); Glucose 96 mg/dL (83-110); Sodium 138 mmol/L (136-145)
[2021-04-02 20:16] LABS: SARS-CoV-2 PCR by NAA Not Detected (NotDetected)
== END 2021-04-02 07:47 | disposition home or self-care (01) ==
LOC: LABBT 07:46
PROVIDERS: ATTEND Thoracic Surgery (Cardiothoracic Vascular Surgery)
DX: Z01.812 Encounter for preprocedural laboratory examination (principal); I26.99 Other pulmonary embolism without acute cor pulmonale; Z20.822 Contact with and (suspected) exposure to COVID-19
CPT/HCPCS: 80048; 85027; U0003; U0005

== ENCOUNTER → 2021-04-06 | Day surgery (SDC) | payer MEDICARE, OTHER ==
[2021-04-03 10:11] VITALS: BMI 32.5
[~2021-04-06] MED LIST: Fentanyl 100 MCG/2 ML VIAL ONE; Lidocaine 1% (PF) 30 ML VIAL ONE; Midazolam HCl 2 mg/2 ml Vial ONE; cloNIDine 0.1 MG TAB ONE; cloNIDine 0.1 MG TAB PO SCH
== END ==
LOC: SDC 06:04
PROVIDERS: ATTEND Thoracic Surgery (Cardiothoracic Vascular Surgery)
PROC: 06PY3DZ Removal of Intraluminal Device from Lower Vein, Percutaneous Approach (ICD-10-PCS; principal; 2021-04-06)
DX: Z45.89 Encounter for adjustment and management of other implanted devices (principal); I10 Essential (primary) hypertension; I48.0 Paroxysmal atrial fibrillation; Z86.711 Personal history of pulmonary embolism; Z86.718 Personal history of other venous thrombosis and embolism; Z87.891 Personal history of nicotine dependence; Z79.01 Long term (current) use of anticoagulants; Z79.899 Other long term (current) drug therapy; Z88.5 Allergy status to narcotic agent
CPT/HCPCS: 37193; 99152; 99153; J2001; J2250; J3010